=== PATIENT | female | born 1965 | race Caucasian/White ===

== ENCOUNTER 2018-10-09 07:27 | Day surgery (SDC) | payer OTHER ==
[~2018-10-09 07:27] MED LIST: Buffered Lidocaine 1% SYRIN* 1 ML/SYRINGE INTRADERM ONE; Dexamethasone IV* 4 MG/ML 1 ML (4 MG) IV SLOW PU ONE; Lactated Ringers 1000 ML Bag* 1,000 ML IV SCH; Levalbuterol 0.63MG/3ML NEB* UNIT OF USE INH ONE
[2018-10-09] MEDS ORDERED: Dexamethasone IV* 4 MG/ML 1 ML (4 MG) ONE (08:59)
[2018-10-09] MEDS ORDERED: Clindamycin 900 MG IVPREMIX(* 900 MG/50 ML SDV IV ONE (08:59)
[2018-10-09] MEDS ORDERED: Midazolam* 1 MG/ML 2 ML VIAL (2 MG) ONE (08:59)
[2018-10-09] MEDS ORDERED: fentaNYL* 50 MCG/ML 2 ML VIAL (100 MCG VIAL) ONE (08:59)
[2018-10-09] MEDS ORDERED: Levalbuterol 0.63MG/3ML NEB* UNIT OF USE INH ONE (08:59)
[2018-10-09] MEDS ORDERED: Bupivacaine 0.25% SDV PF* 10 ML VIAL INJ ONE (09:47)
[2018-10-09] MEDS ORDERED: Famotidine IV* 10 MG/ML 2 ML (20 mg) ONE (10:11)
[2018-10-09] MEDS ORDERED: Lidocaine 2% PF * 5 ML VIAL ONE (10:50)
[2018-10-09] MEDS ORDERED: Propofol* 10 MG/ML 20 ML BTL ONE (10:51)
[2018-10-09] MEDS ORDERED: Naloxone* 0.4 MG/ML 1 ML VIAL IV PRN (11:39)
[2018-10-09] MEDS ORDERED: PROCHLORPERAZINE INJ 5 MG/ML 2 ML VIAL IV PRN (11:39)
[2018-10-09] MEDS ORDERED: oxyCODONE TAB* 5 MG TAB PO PRN (11:39)
[2018-10-09] MEDS ORDERED: fentaNYL* 50 MCG/ML 2 ML VIAL (100 MCG VIAL) IV PRN (11:39)
[2018-10-09] MEDS ORDERED: Ondansetron INJ* 2 MG/ML VIAL ONE (12:26)
[2018-10-09] MEDS ORDERED: Ketorolac INJ* 30 MG/ML 1 ML VIAL ONE (12:26)
[2018-10-09 13:46] VITALS: BP 104/67
--- NOTE | 2018-10-09 14:13 | OP ---
DATE OF OPERATION: 10/09/18 - [facility] DATE OF : 65 SURGEON: Luis Eduardo Patel MD COUNTER SUPERVISOR: YANG Lora. An assistant floor covering printer was needed for the entirety of the procedure to aid in positioning of the arm and retraction. ANESTHESIOLOGIST: Dr. Foreman followed by Dr. Olivas. ANESTHESIA: General. 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 OPERATIVE PROCEDURES: Right middle finger proximal phalanx enchondroma curettage and grafting with distal radius bone grafting and cancellous chips. INDICATIONS: Rosy Branch had a pathologic fracture due to lesion. The fracture is healed and the finger is feeling much better, it is moving better. I told there is time to go ahead and curettage and graft the lesion to try to prevent subsequent fracture of wrist. She understands and she wants to proceed with surgery. ESTIMATED BLOOD LOSS: 2 mL. COMPLICATIONS: None. FINDINGS: See above and below. DESCRIPTION OF PROCEDURE: Rosy Branch was seen in the preoperative holding area. The correct site, side and procedures were identified. We came back to the operating room. The arm was prepped and draped in the usual fashion and a time- out was performed. I infiltrated some 0.25% Marcaine proximal to the middle finger as a block. I then made a mid excellent incision over the proximal phalanx of the middle finger on the radial aspect. Dissection was carried down. The extensor tendon was retracted dorsally with the skin hook. I subperiosteally dissected off the bone taking care to preserve the flexor tendon sheath palmarly. I then used a 2 mm sachin to open up over the lesion. I created a cortical window to length of the lesion. I used the curettes to complete the curettage out the entirety of the bone lesions to quite sometime as there was a big lesion, but we were able to get the full curettage proximally and distally. I used the mini C-arm to confirm. We had reached the margins of the lesion. Once I had nice firm bone around the entirety of the lesion and there was no more soft tissue to curette out, irrigated out everything copiously, again this took quite some time. Next, I made a 2-cm incision just proximal to the Irene's tubercle. Dissection was carried out and subperiosteal flaps were raised off the distal radius. The small osteotome was used to open up the cortical window. I then curetted out large amount of distal radius bone graft. I mixed this with 50 cc of finely morselized cancellous chips. That mixture of graft was then packed extremely tightly into the bone lesion. Once I had everything completely packed , I confirmed on AP and lateral imaging with the mini C-arm, the entirety of the bone lesion was nicely grafted. I went ahead and cleaned up all the remainder of the bone graft chips. The wound was irrigated out gently and then the skin was closed with 4-0 Nylon suture on both incisions. A 0.25% Marcaine was infiltrated all around the areas. The wound was dressed with Xeroform, 4x4s and then a well padded volar splint out to the PIP joints was applied. This will allow her for some gentle PIP joint flexion and extension to try to prevent tendon adhesions. Tourniquet was deflated and she was taken to the recovery room in stable condition. Tourniquet had been used to 250 mmHg throughout the case. [id number]/[facility] #: [id number] FERNANDO
== END 2018-10-09 13:48 | disposition home or self-care (01) ==
LOC: OR 07:27
PROVIDERS: ATTEND Orthopaedic Surgery Hand Surgery
DX: D16.11 Benign neoplasm of short bones of right upper limb (principal); F17.210 Nicotine dependence, cigarettes, uncomplicated; F41.8 Other specified anxiety disorders
CPT/HCPCS: 76000; 88304; C1713; J1100; J1885; J2250; J2405; J2704; J3010; J3490